=== PATIENT | male | born 1960 | race Caucasian/White ===

== ENCOUNTER 2019-08-12 16:34 | Inpatient (IN) ==
[2019-08-12] MEDS ORDERED: NORMAL SALINE 1,000 ML IV PRN (16:49)
--- NOTE | 2019-08-12 16:52 | ERNOTE ---
Neuro HPI ER Record Date of Service: 08/12/19 Presenting Symptoms: other - fever Time Seen by Provider: 08/12/19 16:37 Source: patient Exam Limitations: no limitations Immunizations: IMMUNIZATION HX Immunizations Up to Date Yes History of Influenza Vaccine Yes Hx Pneumococcal Vaccination Yes Allergies/Adverse Reactions: Allergies Allergy/AdvReac Type Severity Reaction Status Date / Time No Known Allergies Allergy Verified 08/12/19 16:48 Home Medications: HOME MEDICATIONS Aspirin [Aspir-Low] 81 mg PO DAILY 05/27/19 [Last Taken Unknown] Trulicity 0.5 ml INJ ONCE 05/27/19 [Last Taken Unknown] Gabapentin 400 mg PO TID 08/12/19 [Last Taken Unknown] Levothyroxine Sodium [Euthyrox] 200 mg PO DAILY 08/12/19 [Last Taken Unknown] Meloxicam [Mobic] 15 mg PO DAILY 08/12/19 [Last Taken Unknown] Metformin HCl 1,000 mg PO BID 08/12/19 [Last Taken Unknown] Omeprazole 40 mg PO DAILY 08/12/19 [Last Taken Unknown] Rosuvastatin Calcium 40 mg PO DAILY 08/12/19 [Last Taken Unknown] amLODIPine BESYLATE [Norvasc] 10 mg PO DAILY 08/12/19 [Last Taken Unknown] glipiZIDE [Glipizide] 10 mg PO BID 08/12/19 [Last Taken Unknown] - Pain Score Pain Score #1 Pain Score: 0 - History of Present Illness Narrative: The patient is a 59 year old male who presents for fever which has been present since this am. There are associated symptoms of cough which has been unchanged for 1 month, fatigue and dizziness. The patient denies pain. There are no alleviating factors. There are no aggravating factors. Previous treatments have included: none. The past medical history includes: HTN, HLD and DM. The social history is positive for current tobacco use. The patient has had no known ill contacts. Patient states he awoke this am feeling unwell and thought it to be associated with his blood sugars but felt to fatigued to check. Patient states he has slept most of the day. Patient denies known exposure to persons with illness, known COVID, recent travel or working outside the home. Patient states he has had a cough but it is unchanged for the past month. Patient denies dyspnea but is hypoxia with SpO2 <90% on RA and tachy pnea. Review of Systems - Review of Systems Constitutional: Present: fever, diaphoresis, fatigue. Absent: chills EYE: Present: no symptoms reported. Absent: vision changes ENT: Present: no symptoms reported. Absent: ear pain, nasal drainage, sore throat Respiratory: Present: cough. Absent: shortness of breath Cardiology: Present: no symptoms reported. Absent: chest pain Gastrointestinal/Abdominal: Present: eating less, drinking less. Absent: nausea, vomiting, diarrhea Genitourinary: Present: no symptoms reported. Absent: dysuria Musculoskeletal: Present: no symptoms reported. Absent: neck pain, joint pain Skin: Present: no symptoms reported. Absent: rash Neurological: Present: dizziness/light-headedness. Absent: weakness, numbness All Other Systems: All systems neg except as marked Medical History (Last Reviewed 08/12/19 @ 17:22 by IVELISSE Lindo) History of neck pain Hx of diabetes mellitus Hx of hyperlipidemia Hx of primary hypertension Surgical History: Surgical History (Last Reviewed 08/12/19 @ 17:22 by IVELISSE Lindo) Hx of cervical spine surgery Family History: Family History (Last Reviewed 08/12/19 @ 17:22 by IVELISSE Lindo) Other No pertinent family history Social History: (Last Reviewed 08/12/19 @ 17:22 by IVELISSE Lindo) Social History: Marital status: household members: spouse parent marital status: Tobacco: Smoking Status: Current every day smoker tobacco type: cigarettes, smokeless tobacco Smoking cigarettes per day: 20 Smoking packs per day: 1 Alcohol: alcohol intake: never Substance Use: substance use type: does not use Physical Exam - Physical Exam General Appearance: Present: wd/wn, mild distress, lethargic Head Exam: Present: normal inspection Eye Exam: Normal inspection: bilateral, PERRL: bilateral, EOMI: bilateral Neck: Present: normal inspection Respiratory: Present: no respiratory distress, accessory muscle use, decreased breath sounds, wheezing - diffuse expiratory and inspiratory to R>L Cardiovascular/Chest: Present: no murmur, tachycardia Gastrointestinal/Abdominal: Present: normal bowel sounds, nontender, nondisten ded, soft, no organomegaly Extremity Exam: Present: no edema Neurological Exam: Present: alert, oriented, normal mood/affect, no motor/sensory deficits Skin Exam: Present: normal color, warm/dry - feels feverish [place] Coma Scale - Assess Eye Opening: Spontaneous Motor: Obeys Commands Verbal: Oriented - Total Coma Scale Total: 15 Progress - Date and Time Seen: Date and Time: 08/12/19 17:36 Patient was placed on O2 2l/nc due to hypoxia with SpO2 88-89% on RA upon arrival with tachypnea rate 28-30 and accessory muscle use. 08/12/19 17:47 Due to patient's presentation with respiratory symptoms and fever influenza was obtained as well as COVID testing. Influenza result is negative and COVID radha ting will be sent to [facility] due to presumed plan of observation admission due to hypoxia on arrival with need for supplemental oxygen. Lactic acid of 2.7, patient tachycardia improving with IV hydration with rate of 101, patient remains normotensive with BP 119/66. 08/12/19 18:30 Results of testing as well as plan of care discussed with Dr. Valle, will admit observation for pneumonia and hypoxia, informed that patient is awaiting COVID testing and will remain in isolation. We will treat patient with IV Rocephin and p.o. azithromycin per pneumonia protocol. Dr. Valle requesting repeat second fluid bolus of 1 L. Discussed plan of care with patient verbalizes understanding. - Results and Orders Patient's Lab Results:: I have reviewed the patient's lab results. - Vital Signs Patient's Vital Signs:: I have reviewed the patient's vital signs. Vital Signs: Vital Signs 08/12/19 16:45 08/12/19 16:49 Temperature 38.7 C H Pulse Rate 110 H 111 H Respiratory Rate 27 H Blood Pressure 116/74 O2 Sat by Pulse Oximetry 89 L - EKG EKG #1 EKG: NSR - tachycardia rate 101, no ectopy or ischemic changes EKG read: Reviewed by me EKG Comments: Reviewed with - X-Ray X-Ray #1 X-Ray: chest Interpretation: Reviewed by me X-ray Comments: Haziness retrocardiac and RLL concerning for developing pneumonia. IMPRESSION: RIGHT LOWER LOBE PNEUMONIA. Electronically signed by Danny Weinberg D.O.. - Progress/Reassessment Chief Complaint: Altered Mental Status Departure Clinical Impression: Hypoxia, Suspected COVID-19 virus infection Pneumonia Qualifiers: Pneumonia type: due to unspecified organism Laterality: right Lung location: lower lobe of lung Qualified Code(s): J18.9 - Pneumonia, unspecified organism - Departure Disposition: Still a patient Condition: Stable
[2019-08-12 17:26] LABS: Hematocrit 44.7 % (42.0-52.0); Hemoglobin 15.1 gm/dL (13.5-18.0); Mean Cell Volume 83.1 fl (78-100); Mean Corpuscular Hemoglobin 28.1 pg (27-31); Mean Corpuscular Hgb Conc 33.8 g/dl (32-36); Mean Platelet Volume 11.5 fl (8-11.3); Neutrophil # 9.5 K/mm3 (1.3-6.0); Neutrophil % 86.9 % (42-75.0); Platelet Count 136 K/mm3 (150-450); Red Blood Count 5.38 M/mm3 (4.7-6.0); Red Cell Distribution Width 13.5 % (11.5-14.0)
[2019-08-12 17:41] LABS: ALT 35 U/L (19-67); AST 37 U/L (0-48); Albumin * 3.6 gm/dl (3.4-5.0); Alkaline Phosphatase * 91 U/L (50-170); Anion Gap 14.9 mmol/L (6.8-13.8); BUN/Creatinine Ratio 11.7 (9.0-21.6); Bilirubin, Total 1.8 mg/dL (0.0-1.1); Blood Urea Nitrogen 13 mg/dL (6-23); Ca. Corrected For Albumin 8.7 mg/dL (8.4-10.2); Calcium * 8.7 mg/dL (7.9-10.9); Chloride 101 mmol/L (97-106); Glucose * 153 mg/dL (70-110); Potassium 3.9 mmol/L (3.4-4.6); Sodium 137 mmol/L (132-142); Total Protein 7.7 gm/dL (6.2-8.2)
[2019-08-12 17:42] LABS: Troponin I Less than 0.017 ng/mL (0.00-0.10)
[2019-08-12] MEDS ORDERED: ACETAMINOPHEN 500 MG TABLET PO ONE (18:26)
[2019-08-12] MEDS ORDERED: cefTRIAXone SODIUM 1,000 MG/100 ML BAG IV ONE (18:26)
[2019-08-12] MEDS ORDERED: AZITHROMYCIN 250 MG TABLET PO ONE (18:26)
[2019-08-12] MEDS ORDERED: NORMAL SALINE 1,000 ML IV ONE ×2 (18:29→18:55)
[2019-08-12] MEDS ORDERED: ACETAMINOPHEN 500 MG TABLET PO PRN (18:58)
--- NOTE | 2019-08-12 18:59 | HP ---
Chief Complaint - Chief Complaint Date of Service: 08/12/19 Time of Service: 18:59 Chief Complaint: Shortness of breath progressively getting worse for 1 day. History of Present Illness: 59-year-old male past medical history of [id number] diabetes mellitus, hyperlipidemia, essential hypertension, obstructive sleep apnea and smoking history of 1 pack/day for 20 years with with no diagnosis of COPD presents to [facility] emergency room with complaint of shortness of breath progressively getting worse for 1 day. Primary care provider: From outside facility. Patient states that he was fine yesterday, and woke up today and was extremely fatigued, he could not get out of bed, and became very short of breath. Patient states he was unable to take any of his medications today. As the day progressed symptoms became progressively became worse and came to the ER for further evaluation. On arrival to the ER, patient was febrile, tachypneic and hypoxic. Patient received Tylenol 1 g and started on 2 L of nasal cannula. He met criteria for COVID-19 rule out, influenza test was negative. COVID-19 testing is pending. Labs are significant for mild leukocytosis, lactic acid of slightly greater than 2.5, d-dimer was negative cardiac panel and EKG were unremarkable. Patient met sepsis criteria, Sepsis protocol initiated and received 2 L of normal saline bolus which should be followed by maintenance IV fluids at 126 mls per hour. Chest X-ray was concerning for community-acquired pneumonia, received Rocephin and azithromycin in the ER. Upon evaluation in the emergency room, patient disclosed smoking history, physical examination, is significant for tachypnea with use of accessory muscles, patient is currently in acute respiratory distress, with diffuse wheezing. Discussed with patient in regards to management. Advised will admit patient for sepsis secondary to community acquired pneumonia however there is concern of acute exacerbation of COPD. Will treat patient for both. Advised patient he will be placed placed in isolation until COVID-19 has been ruled out. Patient voiced understanding and is agreeable to plan. Patient denies any recent travel, and any exposure to known COVID-19 positive patients. Medical History (Last Reviewed 08/12/19 @ 17:22 by IVELISSE Lindo) History of neck pain Hx of diabetes mellitus Hx of hyperlipidemia Hx of primary hypertension Surgical History: Surgical History (Last Reviewed 08/12/19 @ 17:22 by IVELISSE Lindo) Hx of cervical spine surgery Family History: Family History (Last Reviewed 08/12/19 @ 17:22 by IVELISSE Lindo) Other No pertinent family history Social History: (Last Reviewed 08/12/19 @ 17:22 by IVELISSE Lindo) Social History: Marital status: household members: spouse parent marital status: Tobacco: Smoking Status: Current every day smoker tobacco type: cigarettes, smokeless tobacco Smoking cigarettes per day: 20 Smoking packs per day: 1 Alcohol: alcohol intake: never Substance Use: substance use type: does not use Review Of Systems (GEN) - Review of Systems Generalized/Overall Review: Present: Fever, Malaise, Diaphoresis, Fatigue. Absent: Weakness EENTM: Present: No Symptoms Reported Respiratory: Present: Cough, Shortness of Breath, Wheezing. Absent: Orthopnea, Stridor Cardiac: Present: Edema. Absent: Chest Pain, Palpitations, Syncope Abdominal: Absent: Abdominal Pain Genitourinary: Present: No Symptoms Reported Musculoskeletal: Present: No Symptoms Reported Neurological: Present: No Symptoms Reported Skin: Present: No Symptoms Reported Endocrine: Present: No Symptoms Reported Immunizations: IMMUNIZATION HX Immunizations Up to Date Yes History of Influenza Vaccine Yes Hx Pneumococcal Vaccination Yes Allergies/Adverse Reactions: Allergies Allergy/AdvReac Type Severity Reaction Status Date / Time No Known Allergies Allergy Verified 08/12/19 16:48 Home Medications: HOME MEDICATIONS Aspirin [Aspir-Low] 81 mg PO DAILY 05/27/19 [Last Taken Unknown] Trulicity 0.5 ml INJ ONCE 05/27/19 [Last Taken Unknown] Gabapentin 400 mg PO TID 08/12/19 [Last Taken Unknown] Levothyroxine Sodium [Euthyrox] 200 mg PO DAILY 08/12/19 [Last Taken Unknown] Meloxicam [Mobic] 15 mg PO DAILY 08/12/19 [Last Taken Unknown] Metformin HCl 1,000 mg PO BID 08/12/19 [Last Taken Unknown] Omeprazole 40 mg PO DAILY 08/12/19 [Last Taken Unknown] Rosuvastatin Calcium 40 mg PO DAILY 08/12/19 [Last Taken Unknown] amLODIPine BESYLATE [Norvasc] 10 mg PO DAILY 08/12/19 [Last Taken Unknown] glipiZIDE [Glipizide] 10 mg PO BID 08/12/19 [Last Taken Unknown] Exam - Exam Vital Signs: Vital Signs - Last Taken Temp 38.4 C H 08/12/19 18:44 Pulse 96 08/12/19 18:44 Resp 27 H 08/12/19 18:44 BP 116/68 08/12/19 18:44 Pulse Ox 95 08/12/19 18:44 Constitutional: Present: Alert, Oriented x3, Cooperative, Acute distress ENT Exam: Present: hearing grossly normal Eye Exam: bilateral eye: normal inspection, PERRL Neck: Present: non-tender, full range of motion Breasts: Present: Exam deferred Respiratory: Present: respiratory distress, accessory muscle use, wheezing - diffuse, expiration (prolonged) Cardiovascular/Chest: Present: normal peripheral pulses, no chest tenderness, no gallop, no JVD, no murmur, no rub, tachycardia, edema - 1 + pitting edeema of BL LE Peripheral Pulses: dorsalis-pedis (R): 2+, dorsalis-pedis (L): 2+ Abdomen: Present: Normal bowel sounds, soft, nontender, nondistended, no rebound tenderness, no hepatospenomegaly, obese /Rectal: Present: Exam deferred Extremity: Present: normal range of motion, non-tender, normal capillary refill, pedal edema, swelling Skin Exam: Present: normal color, warm/dry, no cyanosis Lymphatic: Present: no adenopathy Neurologic: Present: alert, oriented x 3 Appearance: Present: appropriate appearance Eye contact: Present: cooperative, good eye contact Thoughts: Present: normal thought pattern Diagnostic Studies: Abnormal Lab Results 08/12/19 08/12/19 08/12/19 Range/Units 17:10 17:10 17:10 WBC 11.0 H (4.0-10.5) K/mm3 Plt Count 136 L (150-450) K/mm3 MPV 11.5 H (8-11.3) fl Immature Gran % (Auto) 0.50 H (0.001-0.429) % Immature Gran # (Auto) 0.06 H (0.000-0.0310) K/mm3 Neutrophils % 86.9 H (42-75.0) % Lymphocytes % 6.6 L (20-51) % Neutrophils # 9.5 H (1.3-6.0) K/mm3 Lymphocytes # 0.72 L (1.5-3.5) k/mm3 Anion Gap 14.9 H (6.8-13.8) mmol/L Random Glucose 153 H (70-110) mg/dL Lactic Acid, Venous 2.7 H* (0.4-2.0) mmol/L Total Bilirubin 1.8 H (0.0-1.1) mg/dL Laboratory Results WBC 11.0 K/mm3 (4.0-10.5) H 08/12/19 17:10 RBC 5.38 M/mm3 (4.7-6.0) 08/12/19 17:10 Hgb 15.1 gm/dL (13.5-18.0) 08/12/19 17:10 Hct 44.7 % (42.0-52.0) 08/12/19 17:10 MCV 83.1 fl (78-100) 08/12/19 17:10 MCH 28.1 pg (27-31) 08/12/19 17:10 MCHC 33.8 g/dl (32-36) 08/12/19 17:10 RDW 13.5 % (11.5-14.0) 08/12/19 17:10 Plt Count 136 K/mm3 (150-450) L 08/12/19 17:10 MPV 11.5 fl (8-11.3) H 08/12/19 17:10 Immature Gran % (Auto) 0.50 % (0.001-0.429) H 08/12/19 17:10 Immature Gran # (Auto) 0.06 K/mm3 (0.000-0.0310) H 08/12/19 17:10 Neutrophils % 86.9 % (42-75.0) H 08/12/19 17:10 Lymphocytes % 6.6 % (20-51) L 08/12/19 17:10 Monocytes % 5.6 % (0.0-9) 08/12/19 17:10 Eosinophils % 0.0 % (0.0-3.0) 08/12/19 17:10 Basophils % 0.4 % (0.0-1.0) 08/12/19 17:10 Nucleated RBC % 0.0 k/mm3 (0-1) 08/12/19 17:10 Neutrophils # 9.5 K/mm3 (1.3-6.0) H 08/12/19 17:10 Lymphocytes # 0.72 k/mm3 (1.5-3.5) L 08/12/19 17:10 Monocytes # 0.6 k/mm3 (0.0-1.0) 08/12/19 17:10 Eosinophils # 0.0 k/mm3 (0.0-0.7) 08/12/19 17:10 Absolute Basophils 0.0 k/mm3 (0.0-0.1) 08/12/19 17:10 D-Dimer 0.42 ug/mL (0.19-0.49) D 08/12/19 17:10 Sodium 137 mmol/L (132-142) 08/12/19 17:10 Plasma Sodium 138 mmol/L (130-142) 08/12/19 17:10 Potassium 3.9 mmol/L (3.4-4.6) 08/12/19 17:10 Chloride 101 mmol/L (97-106) 08/12/19 17:10 Carbon Dioxide 25.0 mmol/L (24-32.6) 08/12/19 17:10 Anion Gap 14.9 mmol/L (6.8-13.8) H 08/12/19 17:10 BUN 13 mg/dL (6-23) 08/12/19 17:10 Creatinine 1.11 mg/dL (0.4-1.4) 08/12/19 17:10 Est GFR (Non-Af Amer) 72 mL/min (60-130) 08/12/19 17:10 BUN/Creatinine Ratio 11.7 (9.0-21.6) 08/12/19 17:10 Random Glucose 153 mg/dL (70-110) H 08/12/19 17:10 Lactic Acid, Venous 2.7 mmol/L (0.4-2.0) H* 08/12/19 17:10 Calcium 8.7 mg/dL (7.9-10.9) 08/12/19 17:10 Calcium Adj for Albumin 8.7 mg/dL (8.4-10.2) 08/12/19 17:10 Total Bilirubin 1.8 mg/dL (0.0-1.1) H 08/12/19 17:10 AST 37 U/L (0-48) 08/12/19 17:10 ALT 35 U/L (19-67) 08/12/19 17:10 Alkaline Phosphatase 91 U/L (50-170) 08/12/19 17:10 Troponin I Less than 0.017 ng/mL (0.00-0.10) 08/12/19 17:10 Total Protein 7.7 gm/dL (6.2-8.2) 08/12/19 17:10 Albumin 3.6 gm/dl (3.4-5.0) 08/12/19 17:10 Influenza Type A Ag Negative (NEGATIVE) 08/12/19 16:48 Influenza Type B Ag Negative (NEGATIVE) 08/12/19 16:48 Assessment/Plan - Narrative Narrative: Assessment and plan 59-year-old male admitted for sepsis most likely secondary to right lower lobe community-acquired pneumonia most likely resulting in COPD exacerbation. -Sepsis protocol initiated -Received Rocephin and azithromycin in emergency room -Due to mild leukocytosis broad coverage with Vanco and Zosyn is not warranted -We will trend lactic acid -1 second bolus of normal saline has been administered will start on maintenance IV fluids. -Chest x-ray concerning for possible cardiomegaly and physical examination is consistent with mild pitting edema will obtain BMP and continue to monitor cardiac status. -We will start her on breathing treatments with inhalers, MDI will be on hold if patient acutely worsens overnight. Unable to use nebulizers due to being in isolation. -Solu-Medrol 125 mg IV x1 -Prednisone 40 mg p.o. x5 days starting tomorrow morning. -Pending labs tomorrow morning will most likely transition to Levaquin 750 mg IV and when patient more appropriate will transition to p.o. For total of 7 days. -Tylenol 1 g every 6 as needed for pain or fever. -Patient replaced in isolation until COVID-19 has been ruled out. -We will order sputum cultures Fluids electrolyte nutrition: Due to tachypnea, patient will be n.p.o. to address his respiratory status improves. Concern for aspiration while she is tachypneic. DVT prophylaxis: Lovenox 40 mg subcutaneous CODE STATUS: Disposition: We will continue to monitor patient overnight and manage accordingly. ABG is unremarkable We will continue to monitor respiratory status. Patient is currently hemodynamic stable we will continue to monitor. If patient acutely worsens we will start using breathing treatments with an MDI Dissipate discharge within 48 to 72 hours. We will follow-up on blood cultures - Assessment/Plan (1) Sepsis Problem: Acute Qualifiers: Sepsis type: sepsis due to unspecified organism Sepsis acute organ dysfunction status: with acute organ dysfunction Severe sepsis acute organ dysfunction type: acute respiratory failure Acute respiratory failure type: w ith hypoxia Severe sepsis shock status: without septic shock Qualified Code(s): A41.9 - Sepsis, unspecified organism; R65.20 - Severe sepsis without septic shock; J96.01 - Acute respiratory failure with hypoxia (2) COPD exacerbation Problem: Acute (3) Pneumonia Problem: Acute Qualifiers: Pneumonia type: due to unspecified organism Laterality: right Lung location: lower lobe of lung Qualified Code(s): J18.9 - Pneumonia, unspecified organism (4) Hypoxia Problem: Acute (5) Suspected COVID-19 virus infection Problem: Acute
[2019-08-12] MEDS ORDERED: METHYLPREDNISOLONE SOD SUCC/PF 125 MG/2 ML VIAL IV ONE (19:17)
[2019-08-12] MEDS ORDERED: ROSUVASTATIN CALCIUM 10 MG TABLET ONE (20:43)
[2019-08-12] MEDS ORDERED: METHYLPREDNISOLONE SOD SUCC/PF 125 MG/2 ML VIAL ONE (20:43)
[2019-08-12] MEDS ORDERED: INSULIN ASPART 100 UNITS/ML VIAL SC SCH (21:00)
[2019-08-12] MEDS: ENOXAPARIN SODIUM 40 MG/0.4 ML SYRG SC SCH (21:40)
[2019-08-12] MEDS: FLUTICASONE PROPION/SALMETEROL 14 PUFF DISK.W.DEV IH SCH (21:42)
[2019-08-12] MEDS: ALBUTEROL SULFATE 200 PUFF INHALER IH SCH ×2 (21:42→22:20)
[2019-08-12] MEDS: ROSUVASTATIN CALCIUM 20 MG TABLET PO SCH (21:43)
[2019-08-12] MEDS: INSULIN LISPRO 100 UNITS/ML VIAL SC SCH (21:43)
[2019-08-13] MEDS: ALBUTEROL SULFATE 200 PUFF INHALER IH SCH ×6 (04:17→23:12)
[2019-08-13 06:35] LABS: Hematocrit 41.8 % (42.0-52.0); Hemoglobin 13.8 gm/dL (13.5-18.0); Mean Cell Volume 84.3 fl (78-100); Mean Corpuscular Hemoglobin 27.8 pg (27-31); Mean Platelet Volume 11.4 fl (8-11.3); Neutrophil # 8.1 K/mm3 (1.3-6.0); Neutrophil % 87.8 % (42-75.0); Platelet Count 114 K/mm3 (150-450); Red Blood Count 4.96 M/mm3 (4.7-6.0); Red Cell Distribution Width 13.8 % (11.5-14.0); White Blood Count 9.2 K/mm3 (4.0-10.5)
[2019-08-13 06:50] LABS: Albumin * 3.2 gm/dl (3.4-5.0); BUN/Creatinine Ratio 21.7 (9.0-21.6); Bilirubin, Total 1.5 mg/dL (0.0-1.1); Ca. Corrected For Albumin 8.7 mg/dL (8.4-10.2); Calcium * 8.4 mg/dL (7.9-10.9); Carbon Dioxide 25.8 mmol/L (24-32.6); Potassium 3.8 mmol/L (3.4-4.6); Total Protein 7.4 gm/dL (6.2-8.2)
[2019-08-13] MEDS: LEVOTHYROXINE SODIUM 100 MCG TABLET PO SCH (07:13)
[2019-08-13] MEDS: PANTOPRAZOLE SODIUM 40 MG TABLET.EC PO SCH (07:13)
[2019-08-13] MEDS: FLUTICASONE PROPION/SALMETEROL 14 PUFF DISK.W.DEV IH SCH ×2 (07:14→19:30)
[2019-08-13] MEDS: INSULIN LISPRO 100 UNITS/ML VIAL SC SCH ×4 (07:21→21:40)
[2019-08-13] MEDS ORDERED: ASPIRIN 81 MG TABLET.DR PO SCH (09:00)
--- NOTE | 2019-08-13 09:03 | PN ---
Subjective - Date and Time Seen Date: 08/13/19 Time: 09:03 Subjective Narrative: Patient states he feels better. Still having difficulty breathing but work of breathing has improved since admission. + SOB and Orthopnea. Denies F/C. Denies CP. Intake and output at baseline. Objective - Review of Systems Generalized/Overall Review: Denies: Weakness, Chills, Fever EENTM: Reports: No Symptoms Reported Cardiac: Reports: Edema. Denies: Chest Pain, Palpitations, Syncope Abdominal: Denies: Abdominal Pain Genitourinary Symptoms: Reports: No Symptoms Reported Musculoskeletal Complaints: Denies: Joint Pain, Back Pain, Joint Swelling Neurological: Denies: Weakness, Pre-existing Deficit Skin: Reports: No Symptoms Reported Endocrine: Reports: No Symptoms Reported - Vitals Vitals: Last Vital Signs Temp 36.5 C 08/13/19 08:21 Pulse 93 08/13/19 08:21 Resp 21 H 08/13/19 08:21 BP 126/79 08/13/19 08:21 Pulse Ox 100 08/13/19 08:21 - Abnormal Lab Findings Abnormal Lab Findings: Abnormal Lab Results 08/12/19 08/12/19 08/12/19 Range/Units 17:10 17:10 17:10 WBC 11.0 H (4.0-10.5) K/mm3 Hct (42.0-52.0) % Plt Count 136 L (150-450) K/mm3 MPV 11.5 H (8-11.3) fl Immature Gran % (Auto) 0.50 H (0.001-0.429) % Immature Gran # (Auto) 0.06 H (0.000-0.0310) K/mm3 Neutrophils % 86.9 H (42-75.0) % Lymphocytes % 6.6 L (20-51) % Neutrophils # 9.5 H (1.3-6.0) K/mm3 Lymphocytes # 0.72 L (1.5-3.5) k/mm3 pO2 (83.0-108.0) mmHg Anion Gap 14.9 H (6.8-13.8) mmol/L BUN/Creatinine Ratio (9.0-21.6) Random Glucose 153 H (70-110) mg/dL Lactic Acid, Venous 2.7 H* (0.4-2.0) mmol/L Total Bilirubin 1.8 H (0.0-1.1) mg/dL B-Natriuretic Peptide (5-175) pg/mL Albumin (3.4-5.0) gm/dl 08/12/19 08/12/19 08/13/19 Range/Units 17:10 19:20 06:27 WBC (4.0-10.5) K/mm3 Hct 41.8 L (42.0-52.0) % Plt Count 114 L (150-450) K/mm3 MPV 11.4 H (8-11.3) fl Immature Gran % (Auto) 0.50 H (0.001-0.429) % Immature Gran # (Auto) 0.05 H (0.000-0.0310) K/mm3 Neutrophils % 87.8 H (42-75.0) % Lymphocytes % 9.0 L (20-51) % Neutrophils # 8.1 H (1.3-6.0) K/mm3 Lymphocytes # 0.83 L (1.5-3.5) k/mm3 pO2 80.5 L (83.0-108.0) mmHg Anion Gap (6.8-13.8) mmol/L BUN/Creatinine Ratio (9.0-21.6) Random Glucose (70-110) mg/dL Lactic Acid, Venous (0.4-2.0) mmol/L Total Bilirubin (0.0-1.1) mg/dL B-Natriuretic Peptide 424 H (5-175) pg/mL Albumin (3.4-5.0) gm/dl 08/13/19 Range/Units 06:27 WBC (4.0-10.5) K/mm3 Hct (42.0-52.0) % Plt Count (150-450) K/mm3 MPV (8-11.3) fl Immature Gran % (Auto) (0.001-0.429) % Immature Gran # (Auto) (0.000-0.0310) K/mm3 Neutrophils % (42-75.0) % Lymphocytes % (20-51) % Neutrophils # (1.3-6.0) K/mm3 Lymphocytes # (1.5-3.5) k/mm3 pO2 (83.0-108.0) mmHg Anion Gap (6.8-13.8) mmol/L BUN/Creatinine Ratio 21.7 H (9.0-21.6) Random Glucose 249 H D (70-110) mg/dL Lactic Acid, Venous (0.4-2.0) mmol/L Total Bilirubin 1.5 H (0.0-1.1) mg/dL B-Natriuretic Peptide (5-175) pg/mL Albumin 3.2 L (3.4-5.0) gm/dl - EKG/Xray Findings EKG: other - Sinus Tachycardia EKG read: Interp. by me - Sinus Tachycardia XRAY: chest Interpretation: Reviewed by me - Right lower lobe infiltrate Cardiomegaly Prominent pulmonary vasculature - Exam Constitutional: Present: Alert, Oriented x3, Cooperative, Well developed, Mild distress ENT Exam: Present: hearing grossly normal Neck: Present: non-tender, full range of motion, supple, normal inspection Breasts: Present: Exam deferred Respiratory: Present: lungs clear, normal breath sounds, accessory muscle use, No wheezing Cardiovascular/Chest: Present: normal peripheral pulses, regular rate, rhythm, JVD, systolic murmur, edema - 1+ pitting edema of BL LE Abdomen: Present: Normal bowel sounds, soft, nontender, nondistended, no rebound tenderness, no hepatospenomegaly, no masses, obese /Rectal: Present: Exam deferred Extremity: Present: normal range of motion, non-tender, normal inspection, no calf tenderness, normal capillary refill, pedal edema Skin Exam: Present: normal color, warm/dry, no cyanosis Lymphatic: Present: no adenopathy Neurologic: Present: alert, oriented x 3 Appearance: Present: appropriate appearance, appropriate insight, neat Eye contact: Present: cooperative, good eye contact Thoughts: Present: normal thought pattern Assessment/Plan Plan Narrative: Assessment and plan 59-year-old male admitted for sepsis most likely secondary to right lower lobe community-acquired pneumonia most likely resulting in COPD ex acerbation. Sepsis - Resolved - Blood cultures and Sputum Cultures pending - Leukocytosis resolved - Lactic acid trended down Community Acquired Pneumonia in the setting of possible undiagnosed COPD - Will switch to Levaquin IV Q24. Day 04/22. - Continue with schedule breathing treatments with inhalers - Prednisone 40 mg p.o. Day #1/5 -Tylenol 1 g every 6 as needed for pain or fever. Elevated BNP without diagnosis of CHF - Lasix 10 mg IV - Daily weights - Strict I' & O's - Further cardiac workup will be completed out patient COVID-19 rule out - In isolation until COVID-19 has been ruled out. NIDDM Type II - Continue Insulin on MDDS - Started on Lisinopril 20 mg PO QD Fluids, electrolyte, nutrition: Consistent Carb and HH diet DVT prophylaxis: Lovenox 40 mg subcutaneous CODE STATUS: FULL CODE Disposition: - Will continue to monitor - Anticipate discharge within 48 hours - Goal is to wean off oxygen within 24 hours - Problems/Diagnosis (1) Pneumonia Problem: Acute Qualifiers: Pneumonia type: due to unspecified organism Laterality: right Lung location: lower lobe of lung Qualified Code(s): J18.9 - Pneumonia, unspecified organism (2) COPD exacerbation Problem: Acute (3) Hypoxia Problem: Acute (4) Suspected COVID-19 virus infection Problem: Acute (5) Sepsis Problem: Resolved Qualifiers: Sepsis type: sepsis due to unspecified organism Sepsis acute organ dysfunction status: with acute organ dysfunction Severe sepsis acute organ dysfunction type: acute respiratory failure Acute respiratory failure type: with hypoxia Severe sepsis shock status: without septic shock Qualified Code(s): A41.9 - Sepsis, unspecified organism; R65.20 - Severe sepsis without septic shock; J96.01 - Acute respiratory failure with hypoxia
[2019-08-13] MEDS: amLODIPine BESYLATE 10 MG TABLET PO SCH (10:04)
[2019-08-13] MEDS: LISINOPRIL 20 MG TABLET PO SCH (10:04)
[2019-08-13] MEDS: predniSONE 20 MG TABLET PO SCH (10:05)
[2019-08-13] MEDS: GABAPENTIN 400 MG CAPSULE PO SCH ×3 (10:06→16:58)
[2019-08-13] MEDS: FUROSEMIDE 10 MG/ML VIAL IV SCH (10:08)
[2019-08-13] MEDS: LEVOFLOXACIN IN DEXTROSE 5 % 750 MG/150 ML BAG IV SCH (10:13)
[2019-08-13] MEDS: ENOXAPARIN SODIUM 40 MG/0.4 ML SYRG SC SCH (21:35)
[2019-08-13] MEDS: ROSUVASTATIN CALCIUM 20 MG TABLET PO SCH (21:36)
[2019-08-14] MEDS: ALBUTEROL SULFATE 200 PUFF INHALER IH SCH ×2 (02:50→07:28)
[2019-08-14 06:47] LABS: Hematocrit 39.5 % (42.0-52.0); Hemoglobin 12.9 gm/dL (13.5-18.0); Mean Cell Volume 84.2 fl (78-100); Mean Corpuscular Hemoglobin 27.5 pg (27-31); Mean Corpuscular Hgb Conc 32.7 g/dl (32-36); Neutrophil % 75.6 % (42-75.0); Platelet Count 124 K/mm3 (150-450); Red Blood Count 4.69 M/mm3 (4.7-6.0); Red Cell Distribution Width 13.8 % (11.5-14.0); White Blood Count 10.6 K/mm3 (4.0-10.5)
[2019-08-14 06:53] LABS: Albumin * 3.1 gm/dl (3.4-5.0); Anion Gap 11.6 mmol/L (6.8-13.8); Bilirubin, Total 0.7 mg/dL (0.0-1.1); Calcium * 8.6 mg/dL (7.9-10.9); Carbon Dioxide 26.1 mmol/L (24-32.6); Potassium 3.7 mmol/L (3.4-4.6); Total Protein 7.3 gm/dL (6.2-8.2)
[2019-08-14] MEDS: INSULIN LISPRO 100 UNITS/ML VIAL SC SCH (07:26)
[2019-08-14] MEDS: FLUTICASONE PROPION/SALMETEROL 14 PUFF DISK.W.DEV IH SCH (07:27)
[2019-08-14] MEDS: LEVOTHYROXINE SODIUM 100 MCG TABLET PO SCH (07:28)
[2019-08-14] MEDS: PANTOPRAZOLE SODIUM 40 MG TABLET.EC PO SCH (07:28)
--- NOTE | 2019-08-14 07:42 | PN ---
Subjective - Date and Time Seen Date: 08/14/19 Time: 07:42 Objective - Vitals Vitals: Last Vital Signs Temp 37.2 C 08/14/19 07:32 Pulse 77 08/14/19 07:32 Resp 16 08/14/19 07:32 BP 129/72 08/14/19 07:32 Pulse Ox 99 08/14/19 07:32 - Abnormal Lab Findings Abnormal Lab Findings: Abnormal Lab Results 08/14/19 08/14/19 08/14/19 Range/Units 06:34 06:34 06:34 WBC 10.6 H (4.0-10.5) K/mm3 RBC 4.69 L (4.7-6.0) M/mm3 Hgb 12.9 L (13.5-18.0) gm/dL Hct 39.5 L (42.0-52.0) % Plt Count 124 L (150-450) K/mm3 MPV 12.0 H (8-11.3) fl Immature Gran % (Auto) 0.50 H (0.001-0.429) % Immature Gran # (Auto) 0.05 H (0.000-0.0310) K/mm3 Neutrophils % 75.6 H (42-75.0) % Lymphocytes % 16.8 L (20-51) % Neutrophils # 8.0 H (1.3-6.0) K/mm3 Random Glucose 251 H (70-110) mg/dL Albumin 3.1 L (3.4-5.0) gm/dl Procalcitonin 2.38 H (0.05-0.50) ng/mL Assessment/Plan - Problems/Diagnosis (1) Pneumonia Problem: Acute Qualifiers: Pneumonia type: due to unspecified organism Laterality: right Lung location: lower lobe of lung Qualified Code(s): J18.9 - Pneumonia, unspecified organism (2) COPD exacerbation Problem: Acute (3) Hypoxia Problem: Acute (4) Suspected COVID-19 virus infection Problem: Acute (5) Sepsis Problem: Resolved Qualifiers: Sepsis type: sepsis due to unspecified organism Sepsis acute organ dysfunction status: with acute organ dysfunction Severe sepsis acute organ dysfunction type: acute respiratory failure Acute respiratory failure type: with hypoxia Severe sepsis shock status: without septic shock Qualified Code(s): A41.9 - Sepsis, unspecified organism; R65.20 - Severe sepsis without septic shock; J96.01 - Acute respiratory failure with hypoxia
--- NOTE | 2019-08-14 08:16 | DS ---
(1) Pneumonia Problem: Acute Qualifiers: Pneumonia type: due to unspecified organism Laterality: right Lung location: lower lobe of lung Qualified Code(s): J18.9 - Pneumonia, unspecified organism (2) COPD exacerbation Problem: Acute (3) Hypoxia Problem: Acute (4) Suspected COVID-19 virus infection Problem: Acute (5) Sepsis Problem: Resolved Qualifiers: Sepsis type: sepsis due to unspecified organism Sepsis acute organ dysfunction status: with acute organ dysfunction Severe sepsis acute organ dysfunction type: acute respiratory failure Acute respiratory failure type: with hypoxia Severe sepsis shock status: without septic shock Qualified Code(s): A41.9 - Sepsis, unspecified organism; R65.20 - Severe sepsis without septic shock; J96.01 - Acute respiratory failure with hypoxia (6) Cellulitis of left anterior lower leg Problem: Acute (7) Elevated brain natriuretic peptide (BNP) level Problem: Acute Date of Discharge:: 08/14/19 Hospital Course: 59-year-old male past medical history of [id number] diabetes mellitus, hyperlipidemia, essential hypertension, obstructive sleep apnea and smoking history of 1 pack/day for 20 years with no diagnosis of COPD presents to [facility] emergency room with complaint of shortness of breath progressively getting worse for 1 day. Primary care provider: Kaylene Urban MD. Patient woke up on Sunday morning, August 12, 2019, and was extremely fatigued,unable to get out of bed. He became very short of breath. He was unable to take any of his medications on the day of admissions. Symptoms progressively became worse and came to the ER for further evaluation. On arrival to the ER, patient was febrile, tachypneic and hypoxic. Received Tylenol 1 g and started on oxygen (2 L) by nasal cannula. Met both sepsis and COVID-19 rule out criteria. Influenza test was negative. COVID-19 testing is still pending. Labs were significant for mild leukocytosis, lactic acid of slightly greater than 2.5, d- dimer was negative, cardiac panel and EKG were unremarkable. Patient met sepsis criteria, Sepsis protocol initiated and received 2 L of normal saline bolus which should be followed by maintenance IV fluids at 126 mls per hour. Chest X- ray was concerning for community-acquired pneumonia, received Rocephin and azithromycin in the ER. On admission he was currently in acute respiratory distress, with diffuse wheezing. Admitted for sepsis secondary to community acquired pneumonia and suspected COPD exacerbation. Placed placed in isolation for COVID-19 rule out On admission patient received Solu-Medrol 125 mg IV x1, started on prednisone 40 mg daily for 5 days, breathing treatments with inhalers, transitioned to Levaquin 750 mg IV. Leukocytosis resolved, however on day of discharge there was a slight bump in his white cell count. This is most likely secondary to cellulitis of his left lower leg without involving the foot. Discussed with patient will add Keflex upon discharge, and tight glycemic control is necessary for infection to heal well. Advised he most likely has undiagnosed congestive heart failure and COPD. Received Lasix was hospitalized and responded well. Advised will be discharged on low-dose Lasix along with potassium. Rescue inhaler will be prescribed upon discharge. Highly recommend close follow-up with primary care provider for cellulitis, optimizing treatment for COPD, cardiac work-up and diabetes management. Patient will be discharged home and to self quarantine till COVID-19 results are available. Patient lives with her spouse only. Counseled extensively on precautions in regards to COVID-19. Patient voiced understanding and is agreeable plan. Procedures Performed: none Care Plan Goals: Follow up with PCP within 1 week Plan of Treatment: CAP and undiagnosed COPD - Prednisone 40 mg daily in the morning for 3 days - Levaquin 750 mg daily in the morning for 6 days - Albuterol Inhaler, 2 puffs every 4-6 hours as needed for SOB Cellulitis of left lower leg - Keflex 500 mg by mouth two times per day for 10 days - Tight glycemic control to prevent further complications - Check Blood sugars four times a day and keep log. Bring to follow up appointment for review by PCP Elevated BNP concerning for undiagnosed CHF - Lasix 10 mg daily in the morning for fluid overload - Potassium 20 mEQ daily Diabetes Mellitus Type II - Lisinopril 20 mg daily in the morning for blood pressure and renal protection due to Diabetes Health Concerns: Suspect undiagnosed COPD, needs further evaluation. [id number] diabetes mellitus type 2, necessary for tight glycemic control treat infection and patient currently on low-dose prednisone. Patient is unaware of his last A1c. Elevated BNP with no diagnosis of congestive heart failure, recommend cardiac work-up outpatient Assessment: 59-year-old male admitted for sepsis secondary to community-acquired pneumonia most likely resulting in exacerbation of COPD (undiagnosed) Undiagnosed congestive heart failure Results and Findings: Pending Mircobiology Results 08/12/19 17:10 Blood Blood Culture - Preliminary NO GROWTH 24 HOURS 08/12/19 17:10 Blood Blood Culture - Preliminary NO GROWTH 24 HOURS Lab Pending Results 08/12/19 16:48: Influenza Type A Ag Negative, Influenza Type B Ag Negative 08/12/19 17:10: WBC 11.0 H, RBC 5.38, Hgb 15.1, Hct 44.7, MCV 83.1, MCH 28.1, MCHC 33.8, RDW 13.5, Plt Count 136 L, MPV 11.5 H, Immature Gran % (Auto) 0.50 H, Immature Gran # (Auto) 0.06 H, Neutrophils % 86.9 H, Lymphocytes % 6.6 L, Monocytes % 5.6, Eosinophils % 0.0, Basophils % 0.4, Nucleated RBC % 0.0, Neutrophils # 9.5 H, Lymphocytes # 0.72 L, Monocytes # 0.6, Eosinophils # 0.0, Absolute Basophils 0.0 08/12/19 17:10: Sodium 137, Plasma Sodium 138, Potassium 3.9, Chloride 101, Carbon Dioxide 25.0, Anion Gap 14.9 H, BUN 13, Creatinine 1.11, Est GFR (Non-Af Amer) 72, BUN/Creatinine Ratio 11.7, Random Glucose 153 H, Calcium 8.7, Calcium Adj for Albumin 8.7, Total Bilirubin 1.8 H, AST 37, ALT 35, Alkaline Phosphatase 91, Troponin I Less than 0.017, Total Protein 7.7, Albumin 3.6 08/12/19 17:10: Lactic Acid, Venous 2.7 H* 08/12/19 17:10: D-Dimer 0.42 D 08/12/19 17:10: B-Natriuretic Peptide 424 H 08/12/19 19:20: pCO2 35.5, pO2 80.5 L, HCO3 22.0, Total CO2 23.1, Base Excess - 2.0, ABG pH 7.41, ABG O2 Sat (Measured) 96.1 08/12/19 20:00: Lactic Acid, Venous 1.6 08/13/19 06:27: WBC 9.2, RBC 4.96, Hgb 13.8, Hct 41.8 L, MCV 84.3, MCH 27.8, MCHC 33.0, RDW 13.8, Plt Count 114 L, MPV 11.4 H, Immature Gran % (Auto) 0.50 H, Immature Gran # (Auto) 0.05 H, Neutrophils % 87.8 H, Lymphocytes % 9.0 L, Monocytes % 2.5, Eosinophils % 0.0, Basophils % 0.2, Nucleated RBC % 0.0, Neutrophils # 8.1 H, Lymphocytes # 0.83 L, Monocytes # 0.2, Eosinophils # 0.0, Absolute Basophils 0.0 08/13/19 06:27: Sodium 136, Plasma Sodium 138, Potassium 3.8, Chloride 102, Carbon Dioxide 25.8, Anion Gap 12.0, BUN 15, Creatinine 0.69, Est GFR (Non-Af Amer) 125 D, BUN/Creatinine Ratio 21.7 H, Random Glucose 249 H D, Calcium 8.4, Calcium Adj for Albumin 8.7, Total Bilirubin 1.5 H, AST 34, ALT 36, Alkaline Phosphatase 82, Total Protein 7.4, Albumin 3.2 L 08/14/19 06:34: Procalcitonin 2.38 H 08/14/19 06:34: WBC 10.6 H, RBC 4.69 L, Hgb 12.9 L, Hct 39.5 L, MCV 84.2, MCH 27.5, MCHC 32.7, RDW 13.8, Plt Count 124 L, MPV 12.0 H, Immature Gran % (Auto) 0.50 H, Immature Gran # (Auto) 0.05 H, Neutrophils % 75.6 H, Lymphocytes % 16.8 L, Monocytes % 6.7, Eosinophils % 0.2, Basophils % 0.2, Nucleated RBC % 0.0, Neutrophils # 8.0 H, Lymphocytes # 1.78, Monocytes # 0.7, Eosinophils # 0.0, Absolute Basophils 0.0 08/14/19 06:34: Sodium 135, Plasma Sodium 137, Potassium 3.7, Chloride 101, Carbon Dioxide 26.1, Anion Gap 11.6, BUN 16, Creatinine 0.84, Est GFR (Non-Af Amer) 100, BUN/Creatinine Ratio 19.0, Random Glucose 251 H, Calcium 8.6, Calcium Adj for Albumin 9.0, Total Bilirubin 0.7, AST 19, ALT 29, Alkaline Phosphatase 75, Total Protein 7.3, Albumin 3.1 L Discharge Location: Home Disposition: Home self-care Condition: Stable Discharge Activity: Activity as tolerated Discharge Diet: Consistent carbs, Low salt Referrals: Shawna Urban MD [Primary Care Provider] - One Week (Hospital follow up for CAP, Cellulitis and Suspected COPD and suspected CHF) Problem Oriented Discharge Instructions to Patient/Family: Community-Acquired Pneumonia, Adult, Cvit-[id number], Chronic Obstructive Pulmonary Disease, Easy -to-Read, CHF Patient Instructions Complete Home Medications List: Complete Home Medication List: Trulicity 0.5 ml INJ ONCE 05/27/19 Aspirin 325 mg PO DAILY 08/12/19 Gabapentin 400 mg PO TID 08/12/19 Levothyroxine Sodium [Euthyrox] 200 mg PO DAILY 08/12/19 Meloxicam [Mobic] 15 mg PO DAILY 08/12/19 Metformin HCl 1,000 mg PO BID 08/12/19 Omeprazole 40 mg PO DAILY 08/12/19 Rosuvastatin Calcium 40 mg PO DAILY 08/12/19 amLODIPine BESYLATE [Norvasc] 10 mg PO DAILY 08/12/19 glipiZIDE [Glipizide] 10 mg PO BID 08/12/19 Acetaminophen [Tylenol] 1,000 mg PO Q6H PRN tab 08/14/19 Albuterol Sulfate [Ventolin HFA] 2 puff INHALATION Q4H PRN #1 inhaler 08/14/19 Cephalexin 500 mg PO Q6H 5 Days #20 tab 08/14/19 Fluticasone Propion/Salmeterol [Advair 500-50 Diskus] 2 puff INHALATION BID #1 [email or web address] 08/14/19 Furosemide [Lasix] 10 mg PO QAM #30 tab 08/14/19 Levofloxacin [Levaquin] 750 mg PO DAILY 5 Days #5 tab 08/14/19 Lisinopril [Zestril] 20 mg PO QAM #30 tab 08/14/19 Potassium Chloride [K-Dur] 20 meq PO DAILY #30 tab 08/14/19 predniSONE [Prednisone] 40 mg PO QAM 3 Days #6 tab 08/14/19 Forms: Patient Portal Registration
[2019-08-14] MEDS: LISINOPRIL 20 MG TABLET PO SCH (08:26)
[2019-08-14] MEDS: amLODIPine BESYLATE 10 MG TABLET PO SCH (08:26)
[2019-08-14] MEDS: GABAPENTIN 400 MG CAPSULE PO SCH (08:26)
[2019-08-14] MEDS: predniSONE 20 MG TABLET PO SCH (08:27)
[2019-08-14] MEDS: FUROSEMIDE 10 MG/ML VIAL IV SCH (08:27)
[2019-08-14] MEDS: LEVOFLOXACIN IN DEXTROSE 5 % 750 MG/150 ML BAG IV SCH (08:28)
[2019-08-14] MEDS ORDERED: ASPIRIN 325 MG TABLET.DR PO SCH (09:00)
[2019-08-14 10:26] VITALS: BP 122/72
== END 2019-08-14 11:44 | disposition home or self-care (01) | DRG 871 ==
LOC: MS 16:34 → ER 16:34 → MS 19:50
PROVIDERS: ADMIT Family Medicine; ATTEND Family Medicine
DX: F17.210 Nicotine dependence, cigarettes, uncomplicated; E11.9 Type 2 diabetes mellitus without complications; A41.9 Sepsis, unspecified organism; Z79.4 Long term (current) use of insulin; J96.01 Acute respiratory failure with hypoxia; J44.0 Chronic obstructive pulmonary disease with (acute) lower respiratory infection; I10 Essential (primary) hypertension; J18.9 Pneumonia, unspecified organism; L03.116 Cellulitis of left lower limb; R65.20 Severe sepsis without septic shock
CPT/HCPCS: 36415; 36600; 71010; 71020; 71045; 71046; 80053; 82803; 83519; 83605; 83880; 84145; 84484; 85025; 85379; 87040; 87400; 87449; 93005; 96361; 96365; 96375; 99285; G0378

== ENCOUNTER 2020-09-28 16:25 | Inpatient (IN) ==
[2020-09-28 16:54] LABS: Hematocrit 45.4 % (42.0-52.0); Hemoglobin 14.7 gm/dL (13.5-18.0); Mean Cell Volume 83.8 fl (78-100); Mean Corpuscular Hemoglobin 27.1 pg (27-31); Mean Corpuscular Hgb Conc 32.4 g/dl (32-36); Mean Platelet Volume 11.9 fl (8-11.3); Neutrophil # 8.8 K/mm3 (1.3-6.0); Neutrophil % 85.7 % (42-75.0); Platelet Count 137 K/mm3 (150-450); Red Blood Count 5.42 M/mm3 (4.7-6.0); Red Cell Distribution Width 12.9 % (11.5-14.0); White Blood Count 10.3 K/mm3 (4.0-10.5)
[2020-09-28] MEDS ORDERED: NORMAL SALINE 1,000 ML IV PRN (17:00)
[2020-09-28 17:05] LABS: Anion Gap 17.7 mmol/L (6.8-13.8); BUN/Creatinine Ratio 10.9 (9.0-21.6); Bilirubin, Total 0.9 mg/dL (0.0-1.1); Calcium * 9.3 mg/dL (7.9-10.9); Carbon Dioxide 24.2 mmol/L (24-32.6); Potassium 3.9 mmol/L (3.4-4.6); Total Protein 8.2 gm/dL (6.2-8.2)
[2020-09-28 17:14] LABS: Venous Blood Gas HCO3 24.6 mmol/L (22.0-29.0); Venous Blood Gas pH 7.44 (7.32-7.43)
[2020-09-28] MEDS ORDERED: ACETAMINOPHEN 500 MG TABLET PO ONE (17:20)
--- NOTE | 2020-09-28 17:24 | ERNOTE ---
<Sam Coleman - Last Filed: 09/28/20 19:57> Medical Problem HPI - Narrative Date of Service: 09/28/20 - General Chief Complaint: Fever Time Seen by Provider: 09/28/20 16:55 Source: patient Exam Limitations: no limitations - Immun/Allergies/Home Medications Immunizations: IMMUNIZATION HX Immunizations Up to Date Yes History of Influenza Vaccine Yes Hx Pneumococcal Vaccination Yes Allergies/Adverse Reactions: Allergies No Known Allergies Allergy (Verified 08/12/19 16:48) Home Medications: HOME MEDICATIONS Trulicity 0.5 ml INJ ONCE 05/27/19 [Last Taken Unknown] Aspirin 325 mg PO DAILY 08/12/19 [Last Taken Unknown] Gabapentin 400 mg PO TID 08/12/19 [Last Taken Unknown] Levothyroxine Sodium [Euthyrox] 200 mg PO DAILY 08/12/19 [Last Taken Unknown] Meloxicam [Mobic] 15 mg PO DAILY 08/12/19 [Last Taken Unknown] Metformin HCl 1,000 mg PO BID 08/12/19 [Last Taken Unknown] Omeprazole 40 mg PO DAILY 08/12/19 [Last Taken Unknown] Rosuvastatin Calcium 40 mg PO DAILY 08/12/19 [Last Taken Unknown] amLODIPine BESYLATE [Norvasc] 10 mg PO DAILY 08/12/19 [Last Taken Unknown] Acetaminophen [Tylenol] 1,000 mg PO Q6H PRN tab 08/14/19 [Last Taken Unknown] Fluticasone Propion/Salmeterol [Advair 500-50 Diskus] 2 puff INHALATION BID #1 disk.w.dev 08/14/19 [Last Taken Unknown] Furosemide [Lasix] 10 mg PO QAM #30 tab 08/14/19 [Last Taken Unknown] Lisinopril [Zestril] 20 mg PO QAM #30 tab 08/14/19 [Last Taken Unknown] albuterol sulfate 90 mcg/actuation aerosol inhaler 2 puff INHALATION Q4H PRN #1 inhaler 08/22/19 [Last Taken Unknown] potassium chloride 20 mEq tablet,extended release(part/cryst) 20 meq PO DAILY #30 tab 10/20/19 [Last Taken Unknown] glipizide 10 mg tablet 10 mg PO BID #60 tab 08/24/20 [Last Taken Unknown] - History of Present History Narrative: Patient has a fevers chills body aches does not feel well. Patient tachypneic tachycardic showing signs of sepsis. Patient is also hyperthermic. Nothing to make it better nothing seems to make it worse. Date (Duration): 09/28/20 Time (Timing): 17:03 Timing: constant, getting worse Severity: severe Review of Systems - Review of Systems Constitutional: Present: no symptoms reported EYE: Present: no symptoms reported ENT: Present: no symptoms reported Respiratory: Present: no symptoms reported Cardiology: Present: no symptoms reported Gastrointestinal/Abdominal: Present: no symptoms reported Genitourinary: Present: no symptoms reported Musculoskeletal: Present: no symptoms reported Skin: Present: no symptoms reported Medical History (Last Reviewed 09/28/20 @ 16:37 by Dina Reyes RN) History of neck pain Hx of diabetes mellitus Hx of hyperlipidemia Hx of primary hypertension Surgical History: Surgical History (Last Reviewed 09/28/20 @ 16:37 by Dina Reyes RN) Hx of cervical spine surgery Family History: Family History (Last Reviewed 09/28/20 @ 16:37 by Dina Reyes RN) Other No pertinent family history Social History: (Last Reviewed 09/28/20 @ 16:37 by Dina Reyes RN) Social History: Marital status: household members: spouse parent marital status: Tobacco: Smoking Status: Current every day smoker tobacco type: cigarettes Smoking cigarettes per day: 20 Smoking packs per day: 1 Alcohol: alcohol intake: never Substance Use: substance use type: does not use Physical Exam - Physical Exam Narrative: Patient is tachypneic tachycardic and has an erythematous foot leg is causing him pain. General Appearance: Present: no apparent distress Head Exam: Present: normal inspection, no evidence of injury Eye Exam: Normal inspection: bilateral, PERRL: bilateral, EOMI: bilateral Ears, Nose, Throat: Present: normal ENT inspection Neck: Present: normal inspection, nontender Respiratory: Present: no respiratory distress, normal breath sounds, no accessory muscle use, chest nontender Cardiovascular/Chest: Present: regular rate, rhythm Gastrointestinal/Abdominal: Present: normal bowel sounds, nontender, nondistended, soft, no organomegaly Rectal Exam: Present: nontender Male Genitals Exam: Present: normal genitalia, normal prostate Back Exam: Present: normal inspection, normal range of motion Neurological Exam: Present: alert, normal mood/affect, no motor/sensory deficits Progress - Results and Orders Patient's Lab Results:: I have reviewed the patient's lab results. - Vital Signs Patient's Vital Signs:: I have reviewed the patient's vital signs. Vital Signs: Vital Signs 09/28/20 16:34 Temperature 39.9 C H Pulse Rate 127 H Respiratory Rate 24 H Blood Pressure 113/64 O2 Sat by Pulse Oximetry 93 - Progress/Reassessment Chief Complaint: Fever Progress:: Improved Plan - Plan Plan: Patient discussed with Dr. Wagner who will admit the patient. Departure Clinical Impression: Cellulitis of left anterior lower leg - Departure Disposition: Short Term Hospital Inpatient Condition: Good <Sampson Foster - Last Filed: 09/28/20 20:29> Medical Problem HPI - Immun/Allergies/Home Medications Immunizations: IMMUNIZATION HX Immunizations Up to Date Yes History of Influenza Vaccine Yes Hx Pneumococcal Vaccination Yes Medical History (Last Reviewed 09/28/20 @ 16:37 by Dina Reyes RN) History of neck pain Hx of diabetes mellitus Hx of hyperlipidemia Hx of primary hypertension Surgical History: Surgical History (Last Reviewed 09/28/20 @ 16:37 by Dina Reyes RN) Hx of cervical spine surgery Family History: Family History (Last Reviewed 09/28/20 @ 16:37 by Dina Reyes RN) Other No pertinent family history Social History: (Last Reviewed 09/28/20 @ 16:37 by Dina Reyes, RN) Social History: Marital status: household members: spouse parent marital status: Tobacco: Smoking Status: Current every day smoker tobacco type: cigarettes Smoking cigarettes per day: 20 Smoking packs per day: 1 Alcohol: alcohol intake: never Substance Use: substance use type: does not use Progress - Vital Signs Vital Signs: Vital Signs 09/28/20 16:34 09/28/20 16:53 09/28/20 17:14 Temperature 39.9 C H Pulse Rate 127 H 122 H 115 H Respiratory Rate 24 H Blood Pressure 113/64 128/67 123/52 O2 Sat by Pulse Oximetry 93 09/28/20 17:23 09/28/20 17:38 09/28/20 17:45 Temperature Pulse Rate 112 H 116 H 114 H Respiratory Rate 30 H Blood Pressure 121/60 135/60 112/64 O2 Sat by Pulse Oximetry 93 09/28/20 18:00 09/28/20 18:08 09/28/20 18:23 Temperature 38.5 C H Pulse Rate 114 H 111 H Respiratory Rate 30 H 28 H Blood Pressure 115/59 125/50 O2 Sat by Pulse Oximetry 91 L 92 L 09/28/20 18:38 09/28/20 18:53 09/28/20 19:09 Temperature Pulse Rate 106 H 108 H 111 H Respiratory Rate 27 H 30 H 28 H Blood Pressure 119/47 106/57 105/63 O2 Sat by Pulse Oximetry 91 L 92 L 93 09/28/20 19:23 09/28/20 19:38 09/28/20 19:46 Temperature 38.3 C H Pulse Rate 109 H 109 H Respiratory Rate 29 H 33 H Blood Pressure 109/59 112/44 O2 Sat by Pulse Oximetry 92 L 95 09/28/20 19:47 09/28/20 19:50 09/28/20 19:53 Temperature Pulse Rate 109 H Respiratory Rate 30 H Blood Pressure 107/50 O2 Sat by Pulse Oximetry 94 97 97 09/28/20 20:08 Temperature Pulse Rate 111 H Respiratory Rate 28 H Blood Pressure 116/68 O2 Sat by Pulse Oximetry 98
[2020-09-28 17:33] LABS: Urine Bilirubin 1 mg/dl (NEGATIVE); Urine Blood Negative /ul (NEGATIVE); Urine Ketone 5 mg/dL (NEGATIVE); Urine Nitrite Negative (NEGATIVE); Urine Protein Negative (NEGATIVE); Urine Specific Gravity >=1.030 SP.GR. (1.005-1.030); Urine Urobilinogen Normal (NORMAL)
[2020-09-28 17:45] LABS: Urine Appearance Clear (CLEAR); Urine Bacteria 1+; Urine Color Yellow; Urine Mucus Many - 3+; Urine RBC TRACE /hpf (0-5); Urine WBC TRACE /hpf (0-5)
[2020-09-28] MEDS ORDERED: PIPERACILLIN SODIUM/TAZOBACTAM 3.375 GM in DEXTROSE 5 % IN WATER 100 ML IV ONE ×2 (19:49)
[2020-09-28] MEDS ORDERED: ALBUTEROL SULFATE 200 PUFF INHALER IH PRN (22:05)
[2020-09-28] MEDS: ENOXAPARIN SODIUM 40 MG/0.4 ML SYRG SC SCH (22:42)
[2020-09-28] MEDS: GABAPENTIN 400 MG CAPSULE PO SCH (22:42)
[2020-09-28] MEDS: ACETAMINOPHEN 325 MG TABLET PO PRN (22:42)
[2020-09-28] MEDS: FLUTICASONE PROPION/SALMETEROL 14 PUFF DISK.W.DEV IH SCH (22:43)
[2020-09-28] MEDS: NICOTINE 14 MG PATC TD SCH (22:43)
[2020-09-28] MEDS ORDERED: ALBUTEROL SULFATE/IPRATROPIUM 3 ML NEBU IH PRN (23:23)
[2020-09-29] MEDS ORDERED: PIPERACILLIN SODIUM/TAZOBACTAM 3.375 GM in DEXTROSE 5 % IN WATER 100 ML IV SCH ×2
[2020-09-29] MEDS: PIPERACILLIN SODIUM/TAZOBACTAM 3.375 GM in DEXTROSE 5 % IN WATER 100 ML IV SCH ×6 (01:38→16:38)
[2020-09-29] MEDS: IBUPROFEN 400 MG TABLET PO PRN (03:56)
[2020-09-29] MEDS ORDERED: ALBUTEROL SULFATE 2.5 MG/3 ML VIAL.NEB IH PRN (06:30)
[2020-09-29] MEDS ORDERED: VANCOMYCIN HCL 2 GM in DEXTROSE 5 % IN WATER 500 ML IV ONE ×2 (07:00)
[2020-09-29] MEDS ORDERED: glipiZIDE 10 MG TABLET PO SCH ×2 (07:00→10:30)
[2020-09-29] MEDS ORDERED: PANTOPRAZOLE SODIUM 20 MG TABLET.DR PO SCH (07:00)
[2020-09-29] MEDS: VANCOMYCIN/WATER FOR INJ (PEG) 1.75 GM/350 ML BAG IV SCH ×2 (07:17→20:38)
[2020-09-29] MEDS: LEVOTHYROXINE SODIUM 100 MCG TABLET PO SCH (07:20)
[2020-09-29] MEDS: PANTOPRAZOLE SODIUM 40 MG TABLET.EC PO SCH (07:20)
[2020-09-29] MEDS ORDERED: FUROSEMIDE 20 MG TABLET PO SCH (09:00)
[2020-09-29] MEDS ORDERED: MELOXICAM 15 MG TABLET PO SCH (09:00)
[2020-09-29] MEDS ORDERED: LISINOPRIL 20 MG TABLET PO SCH (09:00)
[2020-09-29] MEDS ORDERED: HYDROcodone/ACETAMINOPHEN 1 EACH TABLET PO PRN (10:16)
[2020-09-29] MEDS ORDERED: traZODone HCL 50 MG TABLET PO PRN (10:16)
--- NOTE | 2020-09-29 10:29 | HP ---
Chief Complaint - Chief Complaint Date of Service: 09/29/20 Time of Service: 10:21 Chief Complaint: I had fever chills and redness in my left leg History of Present Illness: 60-year-old male with past medical history of type 2 diabetes, morbid obesity, hypertension, CAD, nicotine dependence, hyperlipidemia, and COPD was evaluated in the ER for fever chills and erythema of the left lower extremity that started yesterday morning. Patient reports going to bed the day before without any symptoms and noticed yesterday throughout the day he started feeling warm and achy, he also noticed significant erythema of the left lower extremity. Of note the patient was hospitalized for cellulitis of the involved extremity last year at [facility], he was hospitalized for 4 days and treated with IV antibiotics. He denies any recurrence until now. Patient became alarmed when at home medications did not treat his symptoms so that he decided to come to the ER. Once in the ER the patient was noted to have circumferential erythema of the left lower extremity warmness and tenderness to touch, making a diagnosis of cellulitis very likely. He was started on antibiotics and IV hydration and admitted for inpatient care. Medical History (Last Reviewed 09/28/20 @ 16:37 by Dina Reyes RN) History of neck pain Hx of diabetes mellitus Hx of hyperlipidemia Hx of primary hypertension Surgical History: Surgical History (Last Reviewed 09/28/20 @ 16:37 by Dina Reyes RN) Hx of cervical spine surgery Family History: Family History (Last Reviewed 09/28/20 @ 16:37 by Dina Reyes RN) Other No pertinent family history Social History: (Last Reviewed 09/28/20 @ 16:37 by Dina Reyes RN) Social History: Marital status: household members: spouse parent marital status: Tobacco: Smoking Status: Current every day smoker tobacco type: cigarettes Smoking cigarettes per day: 20 Smoking packs per day: 1 Alcohol: alcohol intake: never Substance Use: substance use type: does not use Peds Patient Hx - Developmental: No Pertinent Hx Peds Patient Hx - Medical: No Pertinent Hx Peds Patient Hx - Cardiac/Respiratory: No Pertinent Hx Peds Patient Hx - Surgical: No Surgical History Patient History - Cancer: No Hx of Cancer Review Of Systems (GEN) - Review of Systems Generalized/Overall Review: Present: Chills, Fever EENTM: Present: No Symptoms Reported Respiratory: Present: No Symptoms Reported Cardiac: Present: No Symptoms Reported Abdominal: Present: No Symptoms Reported Genitourinary: Present: No Symptoms Reported Musculoskeletal: Present: Other - Redness and tenderness of left lower extremity Neurological: Present: No Symptoms Reported Skin: Present: Change in Color Endocrine: Present: No Symptoms Reported Immunizations: IMMUNIZATION HX Immunizations Up to Date Yes History of Influenza Vaccine Yes Hx Pneumococcal Vaccination Yes Allergies/Adverse Reactions: Allergies Allergy/AdvReac Type Severity Reaction Status Date / Time No Known Allergies Allergy Verified 08/12/19 16:48 Home Medications: HOME MEDICATIONS Trulicity 0.5 ml INJ ONCE 05/27/19 [Last Taken Unknown] Aspirin 325 mg PO DAILY 08/12/19 [Last Taken Unknown] Gabapentin 1,200 mg PO TID 08/12/19 [Last Taken Unknown] Levothyroxine Sodium [Euthyrox] 200 mg PO DAILY 08/12/19 [Last Taken Unknown] Omeprazole 40 mg PO DAILY 08/12/19 [Last Taken Unknown] Rosuvastatin Calcium 40 mg PO DAILY 08/12/19 [Last Taken Unknown] amLODIPine BESYLATE [Norvasc] 10 mg PO DAILY 08/12/19 [Last Taken Unknown] Acetaminophen [Tylenol] 1,000 mg PO Q6H PRN tab 08/14/19 [Last Taken Unknown] Fluticasone Propion/Salmeterol [Advair 500-50 Diskus] 2 puff INHALATION BID #1 disk.w.dev 08/14/19 [Last Taken Unknown] albuterol sulfate 90 mcg/actuation aerosol inhaler 2 puff INHALATION Q4H PRN #1 inhaler 08/22/19 [Last Taken Unknown] potassium chloride 20 mEq tablet,extended release(part/cryst) 20 meq PO DAILY #30 tab 10/20/19 [Last Taken Unknown] Furosemide 20 mg PO DAILY 09/29/20 [Last Taken Unknown] HYDROcodone/ACETAMINOPHEN [Hydrocodon-Acetaminophen 5-325] 1 ea PO BID PRN 09/29/20 [Last Taken Unknown] Lisinopril/Hydrochlorothiazide [Lisinopril-Hctz 20-25 mg Tab] 1 tab PO DAILY 09/29/20 [Last Taken Unknown] glipiZIDE [Glipizide] 20 mg PO BID 09/29/20 [Last Taken Unknown] metFORMIN HCL [Metformin HCl] 1,000 mg PO BID 09/29/20 [Last Taken Unknown] traZODone HCL [Desyrel] 100 mg PO HS PRN 09/29/20 [Last Taken Unknown] Exam - Exam Vital Signs: Vital Signs - Last Taken Temp 36.9 C 09/29/20 07:26 Pulse 82 09/29/20 07:26 Resp 20 09/29/20 07:26 BP 106/45 09/29/20 07:26 Pulse Ox 100 09/29/20 07:26 Constitutional: Present: Alert, Oriented x3, Cooperative, Well developed, Well nourished, No distress, Morbidly obese ENT Exam: Present: normal ENT inspection, hearing grossly normal Eye Exam: bilateral eye: normal inspection, PERRL, EOMI Neck: Present: non-tender, full range of motion, supple, normal inspection, trachea midline Back Exam: Present: normal inspection, no CVA tenderness, no vertebral tenderness Breasts: Present: Exam deferred, Nontender Respiratory: Present: chest non-tender, lungs clear, normal breath sounds, no respiratory distress, no accessory muscle use Cardiovascular/Chest: Present: normal peripheral pulses, regular rate, rhythm, no chest tenderness, no edema, no gallop, no JVD, no murmur, no rub Peripheral Pulses: carotid (R): 2+, carotid (L): 2+ Abdomen: Present: Normal bowel sounds, soft, nontender, nondistended, no rebound tenderness, no hepatospenomegaly, no masses, obese /Rectal: Present: Exam deferred Extremity: Present: normal range of motion, non-tender, normal inspection, no pedal edema, no calf tenderness, normal capillary refill, pelvis stable, leg pain, other - Circumferential erythema extending to left infrapatellar region of left lower extremity Skin Exam: Present: warm/dry, no cyanosis, skin rash, other - Erythema warmth and tenderness of left lower extremity Lymphatic: Present: no adenopathy Neurologic: Present: 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 as tested, normal cerebellar test, no motor/sensory deficits, alert, normal mood/affect, oriented x 3 Appearance: Present: appropriate appearance, appropriate insight, neat, no memory impairment Eye contact: Present: cooperative Thoughts: Present: normal thought pattern, no apparent hallucination Diagnostic Studies: Abnormal Lab Results 09/28/20 09/28/20 09/28/20 Range/Units 16:49 16:49 17:12 Plt Count 137 L (150-450) K/mm3 MPV 11.9 H (8-11.3) fl Neutrophils % 85.7 H (42-75.0) % Lymphocytes % 8.0 L (20-51) % Neutrophils # 8.8 H (1.3-6.0) K/mm3 Lymphocytes # 0.82 L (1.5-3.5) k/mm3 pO2 47.7 H (23.3-35.1) mmHg ABG pH 7.44 H (7.32-7.43) VBG O2 Saturation 85.2 L (94.0-98.0) % Anion Gap 17.7 H (6.8-13.8) mmol/L Random Glucose 301 H (70-110) mg/dL Urine Glucose (UA) (NEGATIVE) mg/dL Urine Bilirubin (NEGATIVE) mg/dl Urine Bacteria (NONE) Urine Mucus (NONE) 09/28/20 Range/Units 17:14 Plt Count (150-450) K/mm3 MPV (8-11.3) fl Neutrophils % (42-75.0) % Lymphocytes % (20-51) % Neutrophils # (1.3-6.0) K/mm3 Lymphocytes # (1.5-3.5) k/mm3 pO2 (23.3-35.1) mmHg ABG pH (7.32-7.43) VBG O2 Saturation (94.0-98.0) % Anion Gap (6.8-13.8) mmol/L Random Glucose (70-110) mg/dL Urine Glucose (UA) 500 H (NEGATIVE) mg/dL Urine Bilirubin 1 H (NEGATIVE) mg/dl Urine Bacteria 1+ H (NONE) Urine Mucus Many - 3+ H (NONE) Laboratory Results WBC 10.3 K/mm3 (4.0-10.5) 09/28/20 16:49 RBC 5.42 M/mm3 (4.7-6.0) 09/28/20 16:49 Hgb 14.7 gm/dL (13.5-18.0) 09/28/20 16:49 Hct 45.4 % (42.0-52.0) 09/28/20 16:49 MCV 83.8 fl (78-100) 09/28/20 16:49 MCH 27.1 pg (27-31) 09/28/20 16:49 MCHC 32.4 g/dl (32-36) 09/28/20 16:49 RDW 12.9 % (11.5-14.0) 09/28/20 16:49 Plt Count 137 K/mm3 (150-450) L 09/28/20 16:49 MPV 11.9 fl (8-11.3) H 09/28/20 16:49 Immature Gran % (Auto) 0.20 % (0.001-0.429) 09/28/20 16:49 Immature Gran # (Auto) 0.02 K/mm3 (0.000-0.0310) 09/28/20 16:49 Neutrophils % 85.7 % (42-75.0) H 09/28/20 16:49 Lymphocytes % 8.0 % (20-51) L 09/28/20 16:49 Monocytes % 5.4 % (0.0-9) 09/28/20 16:49 Eosinophils % 0.3 % (0.0-3.0) 09/28/20 16:49 Basophils % 0.4 % (0.0-1.0) 09/28/20 16:49 Nucleated RBC % 0.0 k/mm3 (0-1) 09/28/20 16:49 Neutrophils # 8.8 K/mm3 (1.3-6.0) H 09/28/20 16:49 Lymphocytes # 0.82 k/mm3 (1.5-3.5) L 09/28/20 16:49 Monocytes # 0.6 k/mm3 (0.0-1.0) 09/28/20 16:49 Eosinophils # 0.0 k/mm3 (0.0-0.7) 09/28/20 16:49 Absolute Basophils 0.0 k/mm3 (0.0-0.1) 09/28/20 16:49 pCO2 37.2 mmHg (35.0-48.0) 09/28/20 17:12 pO2 47.7 mmHg (23.3-35.1) H 09/28/20 17:12 HCO3 24.6 mmol/L (22.0-29.0) 09/28/20 17:12 Total CO2 25.7 mmol/L (22.0-26.0) 09/28/20 17:12 Base Excess 0.7 mmol/L (-2.0-3.0) 09/28/20 17:12 ABG pH 7.44 (7.32-7.43) H 09/28/20 17:12 VBG O2 Saturation 85.2 % (94.0-98.0) L 09/28/20 17:12 Sodium 139 mmol/L (132-142) 09/28/20 16:49 Plasma Sodium 142 mmol/L (130-142) 09/28/20 16:49 Potassium 3.9 mmol/L (3.4-4.6) 09/28/20 16:49 Chloride 101 mmol/L (97-106) 09/28/20 16:49 Carbon Dioxide 24.2 mmol/L (24-32.6) 09/28/20 16:49 Anion Gap 17.7 mmol/L (6.8-13.8) H 09/28/20 16:49 BUN 11 mg/dL (6-23) 09/28/20 16:49 Creatinine 1.01 mg/dL (0.4-1.4) 09/28/20 16:49 Est GFR (Non-Af Amer) 80 mL/min (60-130) 09/28/20 16:49 BUN/Creatinine Ratio 10.9 (9.0-21.6) 09/28/20 16:49 Random Glucose 301 mg/dL (70-110) H 09/28/20 16:49 Lactic Acid, Venous 1.9 mmol/L (0.4-2.0) 09/28/20 16:49 Calcium 9.3 mg/dL (7.9-10.9) 09/28/20 16:49 Calcium Adj for Albumin 9.0 mg/dL (8.4-10.2) 09/28/20 16:49 Total Bilirubin 0.9 mg/dL (0.0-1.1) 09/28/20 16:49 AST 38 U/L (0-48) 09/28/20 16:49 ALT 45 U/L (19-67) 09/28/20 16:49 Alkaline Phosphatase 123 U/L (50-170) 09/28/20 16:49 Total Protein 8.2 gm/dL (6.2-8.2) 09/28/20 16:49 Albumin 4.0 gm/dl (3.4-5.0) 09/28/20 16:49 Urine Color Yellow 09/28/20 17:14 Urine Appearance Clear (CLEAR) 09/28/20 17:14 Urine pH 6.0 pH (5.0-7.0) 09/28/20 17:14 Ur Specific Vernal >=1.030 SP.GR. (1.005-1.030) 09/28/20 17:14 Urine Protein Negative mg/dL (NEGATIVE) 09/28/20 17:14 Urine Glucose (UA) 500 mg/dL (NEGATIVE) H 09/28/20 17:14 Urine Ketones 5 mg/dL (NEGATIVE) 09/28/20 17:14 Urine Blood Negative /ul (NEGATIVE) 09/28/20 17:14 Urine Nitrate Negative (NEGATIVE) 09/28/20 17:14 Urine Bilirubin 1 mg/dl (NEGATIVE) H 09/28/20 17:14 Urine Urobilinogen Normal EU/dl (NORMAL) 09/28/20 17:14 Ur Leukocyte Esterase Negative /ul (NEGATIVE) 09/28/20 17:14 Urine RBC Trace /hpf (0-5) 09/28/20 17:14 Urine WBC Trace /hpf (0-5) 09/28/20 17:14 Ur Epithelial Cells 0-5 /hpf (0-5) 09/28/20 17:14 Urine Bacteria 1+ (NONE) H 09/28/20 17:14 Urine Mucus Many - 3+ (NONE) H 09/28/20 17:14 Urine Culture Comments No culture indicated 09/28/20 17:14 SARS-CoV-2 (PCR) Not detected (NotDetected) 09/28/20 17:44 Assessment/Plan - Narrative Narrative: Patient was evaluated medical chart was reviewed and decision to admit for intrahospital care of acute left lower extremity cellulitis was made. After evaluating the patient it appears that he will need several days of IV antibiotics in order to treat his infection. Therefore he has been placed on dual IV antibiotic therapy . Patient was tachypneic when he arrived yesterday to the hospital but that has resolved most likely in response to the treatment he is receiving. - Assessment/Plan (1) Cellulitis Problem: Acute Qualifiers: Site of cellulitis: extremity Site of cellulitis of extremity: lower extremity Laterality: left Qualified Code(s): L03.116 - Cellulitis of left lower limb (2) COPD (chronic obstructive pulmonary disease) Problem: Acute (3) Morbid obesity Problem: Acute (4) Smoker unmotivated to quit Problem: Acute (5) Diabetes mellitus Problem: Acute Qualifiers: Diabetes mellitus type: type 2 Diabetes mellitus mcfp insulin use: without mcfp use
[2020-09-29] MEDS ORDERED: NON-FORMULARY 1 DOSE DOSE (Lisinopril/Hydrochlorothiazide [Lisinopril-Hctz 20-25 Mg Tab] 1 PO SCH (10:30)
[2020-09-29] MEDS: GABAPENTIN 400 MG CAPSULE PO SCH ×3 (11:02→16:38)
[2020-09-29] MEDS: FLUTICASONE PROPION/SALMETEROL 14 PUFF DISK.W.DEV IH SCH ×2 (11:04→20:39)
[2020-09-29] MEDS: amLODIPine BESYLATE 10 MG TABLET PO SCH (11:04)
[2020-09-29] MEDS: POTASSIUM CHLORIDE 20 MEQ TABLET.SA PO SCH (11:04)
[2020-09-29] MEDS: ASPIRIN 325 MG TABLET.DR PO SCH (11:05)
[2020-09-29] MEDS: LISINOPRIL 20 MG TABLET PO SCH (11:05)
[2020-09-29] MEDS: SACCHAROMYCES BOULARDII 250 MG CAPSULE PO SCH ×2 (11:06→20:39)
[2020-09-29] MEDS: ROSUVASTATIN CALCIUM 20 MG TABLET PO SCH (11:08)
[2020-09-29] MEDS: FUROSEMIDE 20 MG TABLET PO SCH (11:08)
[2020-09-29] MEDS: HYDROCHLOROTHIAZIDE 25 MG TABLET PO SCH (11:08)
[2020-09-29] MEDS: ACETAMINOPHEN 325 MG TABLET PO PRN (13:55)
[2020-09-29] MEDS: ENOXAPARIN SODIUM 40 MG/0.4 ML SYRG SC SCH (21:21)
[2020-09-29] MEDS: NICOTINE 14 MG PATC TD SCH (21:25)
[2020-09-30] MEDS: PIPERACILLIN SODIUM/TAZOBACTAM 3.375 GM in DEXTROSE 5 % IN WATER 100 ML IV SCH ×6 (00:52→17:40)
[2020-09-30] MEDS: IBUPROFEN 400 MG TABLET PO PRN (03:29)
[2020-09-30] MEDS: PANTOPRAZOLE SODIUM 40 MG TABLET.EC PO SCH (06:43)
[2020-09-30] MEDS: LEVOTHYROXINE SODIUM 100 MCG TABLET PO SCH (06:43)
[2020-09-30] MEDS: VANCOMYCIN/WATER FOR INJ (PEG) 1.75 GM/350 ML BAG IV SCH ×2 (06:44→21:36)
[2020-09-30] MEDS: HYDROCHLOROTHIAZIDE 25 MG TABLET PO SCH (08:28)
[2020-09-30] MEDS: FLUTICASONE PROPION/SALMETEROL 14 PUFF DISK.W.DEV IH SCH ×2 (08:28→21:23)
[2020-09-30] MEDS: ASPIRIN 325 MG TABLET.DR PO SCH (08:28)
[2020-09-30] MEDS: FUROSEMIDE 20 MG TABLET PO SCH (08:29)
[2020-09-30] MEDS: SACCHAROMYCES BOULARDII 250 MG CAPSULE PO SCH ×2 (08:29→21:23)
[2020-09-30] MEDS: amLODIPine BESYLATE 10 MG TABLET PO SCH (08:29)
[2020-09-30] MEDS: POTASSIUM CHLORIDE 20 MEQ TABLET.SA PO SCH (08:29)
[2020-09-30] MEDS: LISINOPRIL 20 MG TABLET PO SCH (08:29)
[2020-09-30] MEDS: ROSUVASTATIN CALCIUM 20 MG TABLET PO SCH (08:30)
[2020-09-30] MEDS: GABAPENTIN 400 MG CAPSULE PO SCH ×3 (08:32→17:40)
--- NOTE | 2020-09-30 09:00 | PN ---
Subjective - Date and Time Seen Date: 09/30/20 Time: 08:52 Subjective Narrative: I feel better but still have redness Objective Objective Narrative: 60-year-old male admitted for left lower extremity cellulitis was ev aluated at bedside this morning was found to be afebrile and in no acute distress. Patient's left lower extremity is showing improvement, and his last erythematous and tender to touch. This morning he reported itching in the involved limb which normally is a good sign that he is responding to the treatment, so he was provided with reassurance that he is heading the right direction. We will keep him for an additional day of intrahospital care with dual IV antibiotics and reevaluate in the morning. - Review of Systems Generalized/Overall Review: Reports: No Symptoms Reported EENTM: Reports: No Symptoms Reported Respiratory: Reports: No Symptoms Reported Cardiac: Reports: No Symptoms Reported Abdominal: Reports: No Symptoms Reported Genitourinary Symptoms: Reports: No Symptoms Reported Musculoskeletal Complaints: Reports: No Symptoms Reported Neurological: Reports: No Symptoms Reported Skin: Reports: Change in Color, Other - Erythema of left lower extremity Endocrine: Reports: No Symptoms Reported - Vitals Vitals: Last Vital Signs Temp 36.6 C 09/30/20 06:30 Pulse 73 09/30/20 08:29 Resp 18 09/30/20 06:30 BP 103/60 09/30/20 08:29 Pulse Ox 100 09/30/20 06:30 - Exam Constitutional: Present: Alert, Oriented x3, Cooperative, Well developed, Well nourished, No distress, Obese ENT Exam: Present: normal ENT inspection, hearing grossly normal Neck: Present: non-tender, full range of motion, supple, normal inspection, trachea midline Breasts: Present: Exam deferred, Nontender Respiratory: Present: chest non-tender, lungs clear, normal breath sounds, no respiratory distress, no accessory muscle use Cardiovascular/Chest: Present: normal peripheral pulses, regular rate, rhythm, no chest tenderness, no edema, no gallop, no JVD, no murmur, no rub Abdomen: Present: Normal bowel sounds, soft, nontender, nondistended, no rebound tenderness, no hepatospenomegaly, no masses, obese /Rectal: Present: Exam deferred Extremity: Present: normal range of motion, non-tender, normal inspection, no pedal edema, no calf tenderness, normal capillary refill, pelvis stable Skin Exam: Present: other - Erythema and mild tenderness to left lower extremity Lymphatic: Present: no adenopathy Neurologic: Present: 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
[2020-09-30] MEDS: INSULIN LISPRO 100 UNITS/ML VIAL SC SCH ×3 (12:30→21:25)
[2020-09-30] MEDS ORDERED: VANCOMYCIN HCL LEVEL XX ONE (20:30)
[2020-09-30] MEDS: ENOXAPARIN SODIUM 40 MG/0.4 ML SYRG SC SCH (21:24)
[2020-09-30] MEDS: NICOTINE 14 MG PATC TD SCH (21:24)
[2020-10-01] MEDS: PIPERACILLIN SODIUM/TAZOBACTAM 3.375 GM in DEXTROSE 5 % IN WATER 100 ML IV SCH ×2 (01:05)
[2020-10-01] MEDS: PANTOPRAZOLE SODIUM 40 MG TABLET.EC PO SCH (07:08)
[2020-10-01] MEDS: LEVOTHYROXINE SODIUM 100 MCG TABLET PO SCH (07:08)
[2020-10-01] MEDS: VANCOMYCIN/WATER FOR INJ (PEG) 1.75 GM/350 ML BAG IV SCH (07:09)
[2020-10-01 07:37] LABS: Albumin * 2.8 gm/dl (3.4-5.0); Anion Gap 14.4 mmol/L (6.8-13.8); BUN/Creatinine Ratio 17.5 (9.0-21.6); Bilirubin, Total 1.1 mg/dL (0.0-1.1); Ca. Corrected For Albumin 9.8 mg/dL (8.4-10.2); Calcium * 9.2 mg/dL (7.9-10.9); Potassium 3.4 mmol/L (3.4-4.6); Total Protein 7.2 gm/dL (6.2-8.2)
[2020-10-01] MEDS: INSULIN LISPRO 100 UNITS/ML VIAL SC SCH (07:41)
[2020-10-01] MEDS: HYDROCHLOROTHIAZIDE 25 MG TABLET PO SCH (08:52)
[2020-10-01] MEDS: FLUTICASONE PROPION/SALMETEROL 14 PUFF DISK.W.DEV IH SCH (08:52)
[2020-10-01] MEDS: ASPIRIN 325 MG TABLET.DR PO SCH (08:52)
[2020-10-01] MEDS: ROSUVASTATIN CALCIUM 20 MG TABLET PO SCH (08:52)
[2020-10-01] MEDS: GABAPENTIN 400 MG CAPSULE PO SCH (08:52)
[2020-10-01] MEDS: FUROSEMIDE 20 MG TABLET PO SCH (08:53)
[2020-10-01] MEDS: SACCHAROMYCES BOULARDII 250 MG CAPSULE PO SCH (08:53)
[2020-10-01] MEDS: POTASSIUM CHLORIDE 20 MEQ TABLET.SA PO SCH (08:53)
[2020-10-01] MEDS: amLODIPine BESYLATE 10 MG TABLET PO SCH (08:53)
[2020-10-01] MEDS: LISINOPRIL 20 MG TABLET PO SCH (08:53)
[2020-10-01] MEDS ORDERED: TRULICITY IJ SCH (09:00)
--- NOTE | 2020-10-01 09:02 | DS ---
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 Patient has responded well to IV dual antibiotics, his erythema has shown significant improvement and is no longer tender to touch. The patient also reports less pain in his left lower extremity and is able to bear weight without discomfort. The patient has been completely afebrile for more than 2 days so we will discharge him home with instructions to complete p.o. antibiotics at home and to follow-up with his PCP in 1 week. We will also provide him with a prescription for probiotics given his long duration on antibiotics. Procedures Performed: none Results and Findings: Pending Mircobiology Results 09/28/20 17:12 Blood Blood Culture - Preliminary NO GROWTH AFTER 48 HOURS 09/28/20 16:50 Blood Blood Culture - Preliminary NO GROWTH AFTER 48 HOURS Lab Pending Results 09/28/20 16:49: WBC 10.3, RBC 5.42, Hgb 14.7, Hct 45.4, MCV 83.8, MCH 27.1, MCHC 32.4, RDW 12.9, Plt Count 137 L, MPV 11.9 H, Immature Gran % (Auto) 0.20, Immature Gran # (Auto) 0.02, Neutrophils % 85.7 H, Lymphocytes % 8.0 L, Monocytes % 5.4, Eosinophils % 0.3, Basophils % 0.4, Nucleated RBC % 0.0, Neutro phils # 8.8 H, Lymphocytes # 0.82 L, Monocytes # 0.6, Eosinophils # 0.0, Absolute Basophils 0.0 09/28/20 16:49: Sodium 139, Plasma Sodium 142, Potassium 3.9, Chloride 101, Car bon Dioxide 24.2, Anion Gap 17.7 H, BUN 11, Creatinine 1.01, Est GFR (Non-Af Amer) 80, BUN/Creatinine Ratio 10.9, Random Glucose 301 H, Calcium 9.3, Calcium Adj for Albumin 9.0, Total Bilirubin 0.9, AST 38, ALT 45, Alkaline Phosphatase 123, Total Protein 8.2, Albumin 4.0 09/28/20 16:49: Lactic Acid, Venous 1.9 09/28/20 17:12: pCO2 37.2, pO2 47.7 H, HCO3 24.6, Total CO2 25.7, Base Excess 0.7, ABG pH 7.44 H, VBG O2 Saturation 85.2 L 09/28/20 17:14: Urine Color Yellow, Urine Appearance Clear, Urine pH 6.0, Ur Specific [place] >=1.030, Urine Protein Negative, Urine Glucose (UA) 500 H, Urine Ketones 5, Urine Blood Negative, Urine Nitrate Negative, Urine Bilirubin 1 H, Urine Urobilinogen Normal, Ur Leukocyte Esterase Negative, Urine RBC Trace, Urine WBC Trace, Ur Epithelial Cells 0-5, Urine Bacteria 1+ H, Urine Mucus Many - 3+ H, Urine Culture Comments No culture indicated 09/28/20 17:44: SARS-CoV-2 (PCR) Not detected 09/30/20 20:42: Vancomycin Trough 9.8 L 10/01/20 06:30: Sodium 136, Plasma Sodium 138, Potassium 3.4, Chloride 100, Carbon Dioxide 25.0, Anion Gap 14.4 H, BUN 14, Creatinine 0.80, Est GFR (Non-Af Amer) 105 D, BUN/Creatinine Ratio 17.5, Random Glucose 245 H, Calcium 9.2, Calcium Adj for Albumin 9.8, Total Bilirubin 1.1, AST 24, ALT 28, Alkaline Phosphatase 89, Total Protein 7.2, Albumin 2.8 L Discharge Location: Home Disposition: Home self-care Condition: Good Face to Face Encounter completed per [facility] Guidelines: No Discharge Activity: Activity as tolerated Discharge Diet: General/regular food, Consistent carbs Referrals: rBooke Urban ARNP [Lead Dental Assistant] - Prescriptions (Any new or edited meds): Levofloxacin [Levaquin] 750 mg PO DAILY 7 Days #7 tab Transmission Status: Pending to [id number] L.acidoph,Paracasei, B.lactis [Probiotic] 1 ea PO BID #60 cap Transmission Status: Pending to [facility] Complete Home Medications List: Complete Home Medication List: Trulicity 0.5 ml INJ ONCE 05/27/19 Aspirin 325 mg PO DAILY 08/12/19 Gabapentin 1,200 mg PO TID 08/12/19 Levothyroxine Sodium [Euthyrox] 200 mg PO DAILY 08/12/19 Omeprazole 40 mg PO DAILY 08/12/19 Rosuvastatin Calcium 40 mg PO DAILY 08/12/19 amLODIPine BESYLATE [Norvasc] 10 mg PO DAILY 08/12/19 Acetaminophen [Tylenol] 1,000 mg PO Q6H PRN tab 08/14/19 Fluticasone Propion/Salmeterol [Advair 500-50 Diskus] 2 puff INHALATION BID #1 disk.w.dev 08/14/19 albuterol sulfate 90 mcg/actuation aerosol inhaler 2 puff INHALATION Q4H PRN #1 inhaler 08/22/19 potassium chloride 20 mEq tablet,extended release(part/cryst) 20 meq PO DAILY #30 tab 10/20/19 Furosemide 20 mg PO DAILY 09/29/20 HYDROcodone/ACETAMINOPHEN [Hydrocodone-Acetamin 5-325 mg] 1 ea PO BID PRN 09/29/20 Lisinopril/Hydrochlorothiazide [Lisinopril-Hctz 20-25 mg Tab] 1 tab PO DAILY 09/29/20 glipiZIDE [Glipizide] 20 mg PO BID 09/29/20 metFORMIN HCL [Metformin HCl] 1,000 mg PO BID 09/29/20 traZODone HCL [Desyrel] 100 mg PO HS PRN 09/29/20 L.acidoph,Paracasei, B.lactis [Probiotic] 1 ea PO BID #60 cap 10/01/20 Levofloxacin [Levaquin] 750 mg PO DAILY 7 Days #7 tab 10/01/20
[2020-10-01 11:09] VITALS: BP 116/72
== END 2020-10-01 11:01 | disposition home or self-care (01) | DRG 603 ==
LOC: ER 16:25 → MS 20:08
PROVIDERS: ADMIT Family Medicine; ATTEND Family Medicine